=== PATIENT | female | born 1975 | race Caucasian/White ===

== ENCOUNTER 2023-07-07 17:33 | Emergency (ER) | payer OTHER, SELFPAY ==
[2023-07-07 17:43] VITALS: BP 131/85; PULSE 100; RESP 18; TEMP 36.2; O2SAT 100
--- NOTE | 2023-07-07 17:50 | ED.EAR ---
HPI - Ear Problem General Chief complaint: Ear Stated complaint: Earache Time Seen by Provider: 07/07/23 17:50 Source: patient Mode of arrival: ambulatory Limitations: no limitations History of Present Illness HPI Narrative: 48-year-old female presents with complaint of pain and pressure to right ear for 2 days. Patient states that she had a cold over the past week that is resolving. All systems reviewed and negative except as noted above. Related Data Home Medications Medication Instructions Recorded Confirmed dexamethasone 0.5 mg/5 mL oral 0.5 mg PO DAILY 07/07/23 07/07/23 solution fluorometholone 0.1 % eye 1 drp EACH EYE BID 07/07/23 07/07/23 drops,suspension levothyroxine 112 mcg tablet 112 mcg PO DAILY 07/07/23 07/07/23 nystatin 100,000 unit/mL oral 1 ml PO PRN PRN Mouth Irritation 07/07/23 07/07/23 suspension omeprazole 40 mg capsule,delayed 40 mg PO DAILY 07/07/23 07/07/23 release Allergies Allergy/AdvReac Type Severity Reaction Status Date / Time No Known Allergies Allergy Verified 07/07/23 17:35 Review of Systems Review of Systems: CONSTITUTIONAL: Denies fever, chills, or sweats. EYES: Denies visual changes, redness, or discharge. ENT: Denies rhinorrhea, congestion, sore throat . Reports pain and pressure to right ear. CARDIOVASCULAR: Denies chest pain, palpitations, or edema. RESPIRATORY: Denies cough or dyspnea. GASTROINTESTINAL: Denies abdominal pain, nausea, vomiting, or diarrhea. GENITOURINARY: Denies dysuria or hematuria. SKIN: Denies rash or itching. MUSCULOSKELETAL: Denies back pain, joint pain, or myalgia. NEUROLOGIC: Denies headache, numbness, or weakness. PSYCHIATRIC: Denies anxiety or depression. All other systems reviewed are negative, except as documented in HPI. PMFSH Comments At time of signature, agree with nursing past medical, surgical, social and family history. There is no relevant family history pertinent to the presenting complaint. Exam Narrative: GENERAL: This is a well-nourished, well-developed patient, in no apparent distress. HEAD: normocephalic, atraumatic. EYES: PERRL. Sclera clear/white. Vision is grossly intact. EARS: External ears normal, auditory canals clear and without drainage, Right TM erythematous with yellow fluid. Left TM normal. No perforation bilaterally. Hearing grossly intact. NOSE: External nose normal NECK: Neck supple, non-tender without lymphadenopathy, masses or thyromegaly. CARDIOVASCULAR: Regular rate and rhythm without murmurs, gallops, or rubs. RESPIRATORY: Clear to auscultation. Breath sounds equal bilaterally. No wheezes, rales, or rhonchi. SKIN: warm, Dry, intact with no suspicious lesions or rash, good texture and turgor. NEURO: awake, alert, and oriented to person, place and time. There were no obvious focal neurologic abnormalities. EXTREMITIES: No joint tenderness, effusion, or edema noted. Course Course Level of Care: Express Care Visit Vital Signs Vital signs: Vital Signs Temperature 36.2 C L 07/07/23 17:43 Pulse Rate 100 07/07/23 17:43 Respiratory Rate 18 07/07/23 17:43 Blood Pressure 131/85 07/07/23 17:43 Pulse Oximetry 100 07/07/23 17:43 Oxygen Delivery Room Air 07/07/23 17:43 Temperature 36.2 C L 07/07/23 17:43 Pulse Rate 100 07/07/23 17:43 Respiratory Rate 18 07/07/23 17:43 Blood Pressure 131/85 07/07/23 17:43 Pulse Oximetry 100 07/07/23 17:43 Oxygen Delivery Room Air 07/07/23 17:43 Reviewed Medical Decision Making MDM Narrative Medical decision making narrative: Patient is aware of diagnosis, understands and agrees to treatment plan. Anticipatory guidance given. Patient agrees to follow-up as directed and is aware of reasons to seek care at the emergency department. Portions of this record may have been created with voice recognition software Differential Diagnosis Differential Diagnosis: Otitis media Vital Signs Vital Signs
== END 2023-07-07 18:00 | disposition home or self-care (01) ==
PROVIDERS: Emergency Provider Nurse Practitioner Family
DX: H66.91 Otitis media, unspecified, right ear (principal); K21.9 Gastro-esophageal reflux disease without esophagitis; E89.0 Postprocedural hypothyroidism; Z86.16 Personal history of COVID-19; Z85.850 Personal history of malignant neoplasm of thyroid; Z85.3 Personal history of malignant neoplasm of breast; Z92.21 Personal history of antineoplastic chemotherapy; Z92.3 Personal history of irradiation; Z90.10 Acquired absence of unspecified breast and nipple
CPT/HCPCS: 99203; G0463

== ENCOUNTER 2023-10-31 16:19 | Emergency (ER) | payer OTHER, SELFPAY ==
[2023-10-31 16:42] VITALS: BP 145/90; PULSE 108; RESP 15; TEMP 36.9; O2SAT 99
--- NOTE | 2023-10-31 16:51 | ED.SKABFB ---
HPI - Skin/Abscess/Foreign Bdy General Chief complaint: Skin/Abscess/Foreign Body Stated complaint: in grown hair lower body Time Seen by Provider: 10/31/23 16:51 Source: patient Mode of arrival: ambulatory Limitations: no limitations History of Present Illness HPI narrative: 48-year-old female with history of breast cancer presents with concern for infected ingrown hair to pubic area. Patient recently finished 6 months of chemotherapy pain. States her hair is beginning to grow back and has had ingrown hairs. States wound to current ingrown hair is not healing. Called her oncologist and was told may need antibiotic. Afebrile. All systems reviewed and negative except as noted above. Related Data Home Medications Medication Instructions Recorded Confirmed dexamethasone 0.5 mg/5 mL oral 0.5 mg PO DAILY 07/07/23 10/31/23 solution fluorometholone 0.1 % eye 1 drp EACH EYE BID 07/07/23 10/31/23 drops,suspension levothyroxine 112 mcg tablet 112 mcg PO DAILY 07/07/23 10/31/23 nystatin 100,000 unit/mL oral 1 ml PO PRN PRN Mouth Irritation 07/07/23 10/31/23 suspension omeprazole 40 mg capsule,delayed 40 mg PO DAILY 07/07/23 10/31/23 release Allergies Allergy/AdvReac Type Severity Reaction Status Date / Time doxorubicin Allergy Severe Anaphylaxis Verified 10/31/23 17:04 Review of Systems Review of Systems: CONSTITUTIONAL: Denies fever, chills, or sweats. EYES: Denies visual changes, redness, or discharge. ENT: Denies rhinorrhea, congestion, sore throat, or otalgia. CARDIOVASCULAR: Denies chest pain, palpitations, or edema. RESPIRATORY: Denies cough or dyspnea. GASTROINTESTINAL: Denies abdominal pain, nausea, vomiting, or diarrhea. GENITOURINARY: Denies dysuria or hematuria. SKIN: Denies rash or itching. Reports Infected ingrown hair. MUSCULOSKELETAL: Denies back pain, joint pain, or myalgia. NEUROLOGIC: Denies headache, numbness, or weakness. PSYCHIATRIC: Denies anxiety or depression. All other systems reviewed are negative, except as documented in HPI. PMFSH Comments At time of signature, agree with nursing past medical, surgical, social and family history. There is no relevant family history pertinent to the presenting complaint. Exam Narrative: GENERAL: This is a well-nourished, well-developed patient, in no apparent distress. HEAD: normocephalic, atraumatic. EYES: PERRL. Sclera clear/white. Vision is grossly intact. EARS: External ears normal NOSE: External nose normal NECK: Neck supple, non-tender without lymphadenopathy, masses or thyromegaly. CARDIOVASCULAR: Regular rate and rhythm without murmurs, gallops, or rubs. RESPIRATORY: Clear to auscultation. Breath sounds equal bilaterally. No wheezes, rales, or rhonchi. SKIN: warm, Dry, intact with no suspicious lesions or rash, good texture and turgor. ingrown here to suprapubic area with erythema and swelling. No drainage at this time. No fluctuance concerning for abscess. NEURO: awake, alert, and oriented to person, place and time. There were no obvious focal neurologic abnormalities. EXTREMITIES: No joint tenderness, effusion, or edema noted. Course Course Level of Care: Express Care Visit Vital Signs Vital signs: Vital Signs Temperature 36.9 C 10/31/23 16:42 Pulse Rate 108 H 10/31/23 16:42 Respiratory Rate 15 10/31/23 16:42 Blood Pressure 145/90 H 10/31/23 16:42 Pulse Oximetry 99 10/31/23 16:42 Oxygen Delivery Room Air 10/31/23 16:42 Temperature 36.9 C 10/31/23 16:42 Pulse Rate 108 H 10/31/23 16:42 Respiratory Rate 15 10/31/23 16:42 Blood Pressure 145/90 H 10/31/23 16:42 Pulse Oximetry 99 10/31/23 16:42 Oxygen Delivery Room Air 10/31/23 16:42 reviewed MDM - Skin/Abscess/Foreign Bdy MDM Narrative Medical decision making narrative: Patient is aware of diagnosis, understands and agrees to treatment plan. Anticipatory guidance given. Patient agrees to follow-up as directed
== END 2023-10-31 17:07 | disposition home or self-care (01) ==
PROVIDERS: Emergency Provider Nurse Practitioner Family
DX: L73.1 Pseudofolliculitis barbae (principal); Z85.3 Personal history of malignant neoplasm of breast
CPT/HCPCS: 99213; G0463

== ENCOUNTER 2023-11-14 09:26 | Emergency (ER) | payer OTHER, SELFPAY ==
--- NOTE | 2023-11-14 09:41 | ED.EAR ---
HPI - Ear Problem General Chief complaint: Ear Stated complaint: RT Ear Pain Time Seen by Provider: 11/14/23 09:48 Source: patient Mode of arrival: ambulatory Limitations: no limitations History of Present Illness HPI Narrative: Gisela is a 48-year-old female patient presenting to the clinic today with complaints of right-sided ear pain that just started this morning. Pain is radiating into her jaw all and down her neck. She reports she has had some nasal congestion/postnasal drip that started on Friday. She denies any fevers, chills, or body aches. Does have a slight productive cough with clear phlegm. Related Data Home Medications Medication Instructions Recorded Confirmed dexamethasone 0.5 mg/5 mL oral 0.5 mg PO DAILY 07/07/23 11/14/23 solution fluorometholone 0.1 % eye 1 drp EACH EYE BID 07/07/23 11/14/23 drops,suspension levothyroxine 112 mcg tablet 112 mcg PO DAILY 07/07/23 11/14/23 nystatin 100,000 unit/mL oral 1 ml PO PRN PRN Mouth Irritation 07/07/23 11/14/23 suspension omeprazole 40 mg capsule,delayed 40 mg PO DAILY 07/07/23 11/14/23 release Allergies Allergy/AdvReac Type Severity Reaction Status Date / Time doxorubicin Allergy Severe Anaphylaxis Verified 11/14/23 09:33 Review of Systems Review of Systems: Pertinent positives per HPI. Patient denies any fever, chills, rash, headache, visual changes, dizziness, sore throat, shortness of breath, chest pain, palpitations, nausea, vomiting, diarrhea, constipation, abdominal pain, or any urinary issues. PMFSH Comments At the time of my signature, I reviewed and agree with the nursing past medical, surgical, social, and family history. There is no relevant family history pertinent to the patient complaint. Exam Narrative: General: Well-developed, well nourished, in no apparent distress Head: Normocephalic, atraumatic Eyes: Pupils equally round and reactive to light bilaterally, EOM intact, sclera and conjunctive clear, no discharge, lids normal Ears: TMs intact and congested with mild bulging, ear canals clear, no drainage, grossly hearing normal. Nose: Nares patent, clear nasal discharge, no inflammation, no sinus tenderness. Mouth: Oral pharynx without lesions or masses, good dentition, MMM. Postnasal drip, mild tenderness over the right TMJ without crepitus Neck: Supple, trachea midline, no enlargement of anterior or posterior cervical nodes, no thyroid masses or goiter palpable. Cardio: Regular rate and rhythm, s1 and s2 normal, no murmur appreciated. Resp: Clear to auscultation bilaterally, no rhonchi, rales, wheezing or rubs Course Course Emergency Course: Portions of this record may have been created with voice recognition software. Level of Care: Express Care Visit Vital Signs Vital signs: Vital Signs Temperature 36.5 C 11/14/23 09:44 Pulse Rate 100 11/14/23 09:44 Respiratory Rate 16 11/14/23 09:44 Blood Pressure 117/68 11/14/23 09:44 Pulse Oximetry 99 11/14/23 09:44 Oxygen Delivery Room Air 11/14/23 09:44 Temperature 36.5 C 11/14/23 09:44 Pulse Rate 100 11/14/23 09:44 Respiratory Rate 16 11/14/23 09:44 Blood Pressure 117/68 11/14/23 09:44 Pulse Oximetry 99 11/14/23 09:44 Oxygen Delivery Room Air 11/14/23 09:44 Vital signs reviewed Medical Decision Making MDM Narrative Medical decision making narrative: At the time of visit patient is resting comfortably on the exam table. Patient appears to be nontoxic. Plan: I suspect patient has URI/otalgia/eustachian tube dysfunction. Prescription for prednisone was sent to the pharmacy. Supportive measures were discussed with the patient and they voiced understanding discharge instructions and agrees to treatment plan. Return precautions reviewed Differential Diagnosis Differential Diagnosis: Otitis media, otitis externa, eustachian tube dysfunction, cerumen impaction, upper respiratory infection, serous otitis Vit
[2023-11-14 09:44] VITALS: BP 117/68; PULSE 100; RESP 16; TEMP 36.5; O2SAT 99
== END 2023-11-14 09:53 | disposition home or self-care (01) ==
PROVIDERS: Emergency Provider Nurse Practitioner Family
DX: H69.91 Unspecified Eustachian tube disorder, right ear (principal); H92.01 Otalgia, right ear; J06.9 Acute upper respiratory infection, unspecified; E89.0 Postprocedural hypothyroidism; K21.9 Gastro-esophageal reflux disease without esophagitis; Z85.3 Personal history of malignant neoplasm of breast; Z90.12 Acquired absence of left breast and nipple; Z85.850 Personal history of malignant neoplasm of thyroid; Z92.21 Personal history of antineoplastic chemotherapy; Z92.3 Personal history of irradiation
CPT/HCPCS: 99213; G0463